=== PATIENT | male | born 1950 | race Caucasian/White ===

== ENCOUNTER → 2018-10-21 | Outpatient (CLI) | payer MEDICARE | LOC: COL.RAD 10:42 | DX: Z01.812 Encounter for preprocedural laboratory examination (principal); H91.93 Unspecified hearing loss, bilateral; J32.0 Chronic maxillary sinusitis; J32.2 Chronic ethmoidal sinusitis | CPT/HCPCS: Q9967 ==

== ENCOUNTER → 2020-12-10 | Outpatient (CLI) | payer MEDICARE | LOC: COL.RAD 09:48 | DX: G44.039 Episodic paroxysmal hemicrania, not intractable (principal) ==

== ENCOUNTER 2023-11-15 06:26 | Emergency (ER) | payer MEDICARE ==
[~2023-11-15] VITALS: Ht 175.3 cm; Wt 86.4 kg
[2023-11-15 06:27] VITALS: TEMP 97.8
[2023-11-15] MEDS ORDERED: Morphine 10 MG/ML VIAL IM ONE (07:00)
[2023-11-15] MEDS ORDERED: Lidocaine 4% Topical Patch TP ONE (08:00)
[2023-11-15 08:02] VITALS: BP 124/78; PULSE 64
== END 2023-11-15 08:02 | disposition home or self-care (01) ==
LOC: COL.ER 06:26
DX: R07.89 Other chest pain (principal); J90 Pleural effusion, not elsewhere classified; Z95.1 Presence of aortocoronary bypass graft
CPT/HCPCS: J2270

== ENCOUNTER 2023-11-23 10:11 | Inpatient (IN) | payer MEDICARE ==
[~2023-11-23] VITALS: Ht 175.3 cm; Wt 91.4 kg
[2023-11-23 11:18] LABS: HEMATOCRIT 46.7 % (42.0-52.0); HEMOGLOBIN 15.6 g/dl (13.5-18.0); MEAN CELL VOLUME 93 fl (80.0-100.0); MEAN CORPUSCULAR HEMOGLOBIN 31 pg (27-31); MEAN CORPUSCULAR HGB CONC 33 g/dl (33.0-37.0); MEAN PLATELET VOLUME 9.8 fl (7.4-10.4); PLATELET COUNT 253 K/mm3 (130-400); RED BLOOD COUNT 5.01 M/mm3 (4.20-5.60); REDCELL DISTRIBUTION WIDTH-CV 13.6 % (11.5-14.5)
[2023-11-23 11:44] LABS: ALANINE AMINOTRANSFERASE 69 U/L (0-55); ALBUMIN 2.4 g/dL (3.4-4.8); ALKALINE PHOSPHATASE 128 U/L (40-150); ANION GAP 12 mmol/L (7-16); AST,SGOT 34 U/L (5-34); BLOOD UREA NITROGEN 24 mg/dL (8-26); CALCIUM 9.2 mg/dL (8.4-10.2); CHLORIDE 101 mEq/L (98-107); CREATININE, serum 0.84 mg/dL (0.72-1.25); GLUCOSE 95 mg/dL (70-99); POTASSIUM 4.6 mEq/L (3.5-4.5); SODIUM 136 mEq/L (136-145); TOTAL PROTEIN 6.6 g/dl (6.2-8.1)
[2023-11-23] MEDS ORDERED: NS 1,000 ML IV ONE (11:45)
[2023-11-23 11:50] LABS: TROPONIN-I < 0.010 ng/mL (0.00-0.033)
[2023-11-23 12:09] LABS: LYMPHOCYTE 9 % (20.0-51.0); NEUTROPHILS 89 % (42.0-75.2); PLATELET ESTIMATE NORMAL (NORMAL)
[2023-11-23 12:10] LABS: BURR CELLS 1+
[2023-11-23] MEDS ORDERED: Doxycycline Monohydrate 100 MG CAP PO SCH (12:19)
[2023-11-23] MEDS ORDERED: BETAPACE AF80 MG/TA1 PO (12:43)
[2023-11-23] MEDS ORDERED: LIPITOR 40MG TA40 MG PO ×2 (12:44→12:45)
[2023-11-23] MEDS ORDERED: CARDURA4 MG PO (12:44)
[2023-11-23] MEDS ORDERED: ASPIRIN E.C. 8181 MG PO (12:47)
[2023-11-23] MEDS ORDERED: NYSTATIN100000 U/1 TOP (12:47)
[2023-11-23] MEDS ORDERED: HONEY BEARS MU1 EACH PO (12:50)
[2023-11-23] MEDS ORDERED: B-121000 MCG PO (12:51)
[2023-11-23] MEDS ORDERED: OMEGA-3 1000 MG1 CAP PO (12:52)
[2023-11-23] MEDS ORDERED: PROBIOTIC-PREB1 EACH PO (12:52)
[2023-11-23 13:49] VITALS: BP 154/85; PULSE 74; TEMP 97.4
[2023-11-23] MEDS ORDERED: *Potassium Replacement Protocol MC SCH (14:30)
--- NOTE | 2023-11-23 14:54 | NUR ---
Pt. to the floor from ER. Pt. is A&OX3, assessment complete. INT to lt. ac patent. Pt. denies pain at this time. Call light within reach.
[2023-11-23] MEDS ORDERED: Cefepime 1 G in Water For Injection,Sterile 10 ML IV SCH (15:00)
[2023-11-23 15:05] LABS: INR 1.4 (0.8-3.0); PROTHROMBIN TIME 15.1 SECONDS (9.7-12.8)
[2023-11-23] MEDS ORDERED: Nystatin 100,000 Units/GM Cream 15 GM TUBE TP PRN (17:00)
[2023-11-23] MEDS ORDERED: Atorvastatin 40 MG TAB PO PRN (17:00)
[2023-11-23 18:31] LABS: PLEURAL FLUID RBC 90000 /mm3 (0-0)
[2023-11-23 18:33] LABS: PLEURAL FLUID APPEARANCE TURBID; PLEURAL FLUID COLOR AMBER
[2023-11-23 19:24] VITALS: BP 149/82; PULSE 94; TEMP 98.3
[2023-11-23] MEDS ORDERED: traMADol 50 MG TAB PO PRN (20:00)
[2023-11-23] MEDS ORDERED: Atorvastatin 40 MG TAB PO SCH (21:00)
--- NOTE | 2023-11-23 21:10 | NUR ---
SHIFT ASSESSMENT COMPLETE. MED PASS COMPLETE. BANDAGE TO LT ANGELIA SITE CDI. LUNG SOUNDS DIMINISHED ALL QUADRANTS. PATIENT AXO X 4. C/O OF 6/10 PLEURAL PAIN. CALL PLACED TO HOSPITALIST TORB FOR TRAMADOL GIVEN AND ADMINISTERED.
[2023-11-23 23:03] VITALS: BP 115/64; PULSE 70; TEMP 98.6
[2023-11-24] VITALS (11 sets, daily range): BP systolic 134–153; BP diastolic 81–92; PULSE 69–83; TEMP 97.3–98.3
--- NOTE | 2023-11-24 05:12 | NUR ---
PATIENT 02 SAT 90% ON RA- 2L O2 NASAL CANULA APPLIED. PATIENT O2 SAT 95%.
[2023-11-24 06:19] LABS: BASO # 0.1 K/mm3 (0.0-0.2); BASO % 0.2 % (0.0-2.0); EOS % 0.1 % (0.0-4.0); GRAN % 86.3 % (42.2-75.2); HEMATOCRIT 47.8 % (42.0-52.0); HEMOGLOBIN 16.2 g/dl (13.5-18.0); LYMPH # 1.8 K/mm3 (1.2-3.4); LYMPH % 7.9 % (20.0-51.0); MEAN CELL VOLUME 91 fl (80.0-100.0); MEAN CORPUSCULAR HEMOGLOBIN 31 pg (27-31); MEAN CORPUSCULAR HGB CONC 34 g/dl (33.0-37.0); MEAN PLATELET VOLUME 9.8 fl (7.4-10.4); MONO # 1.1 K/mm3 (0.1-0.6); MONO % 4.6 % (1.7-9.3); PLATELET COUNT 259 K/mm3 (130-400); RED BLOOD COUNT 5.28 M/mm3 (4.20-5.60); REDCELL DISTRIBUTION WIDTH-CV 13.4 % (11.5-14.5)
[2023-11-24 06:33] LABS: ALBUMIN 2.4 g/dL (3.4-4.8); CALCIUM 9.7 mg/dL (8.4-10.2); CREATININE, serum 0.86 mg/dL (0.72-1.25); PHOSPHOROUS 3.4 mg/dL (2.3-4.7); POTASSIUM 4.4 mEq/L (3.5-4.5)
--- NOTE | 2023-11-24 06:53 | NUR ---
ATTEMPTED TO CALL HOSPITALIST FOR CRITICAL LAB VALUE-WBC 23.2. NO ANSWER. WILL PASS TO DAYSHIFT.
[2023-11-24] MEDS ORDERED: Iohexol 300 - 100 ML VIAL IV ONE (10:58)
[2023-11-24] MEDS ORDERED: NS 100 ML IV SCH (10:59)
--- NOTE | 2023-11-24 12:33 | NUR ---
Supervisor Braiding met with patient to discuss discharge planning. Patient lives alone in [place], [place] and sees Dr. Vaz for primary care. Patient gets his medications from [facility] and while he stated he can afford his medications, he is concerned about his hospital bill. SW consulted [employer] Counselor for assistance. Patient does not use any DME and is independent with [employer]. Patient stated this all started when he was helping his son, Armando move windows and he injured his ribs. Patient advised his son is a local contractor and he was helping him out. Patient has three sons: Armando (ph#[phone]), Casimiro, and Ruddy. Patient requested to fill out DPOA-HC and chose to designate his sons, Armando and Ruddy. KEESHA and KEESHA student, Bianca provided witness signature. KEESHA placed copy in chart then provided original and copies to patient. Discharge Plan: Home
[2023-11-24] MEDS ORDERED: VITAMIN D31000 IU PO (14:14)
[2023-11-24] MEDS ORDERED: Cholecalciferol (Vit D3) 1000 Units TAB PO SCH (14:30)
[2023-11-24] MEDS ORDERED: Multivitamin TAB PO SCH (14:30)
[2023-11-24] MEDS ORDERED: Cyanocobalamin (Vit B-12) 1,000 MCG TAB PO SCH (14:30)
--- NOTE | 2023-11-24 21:00 | NUR ---
SHIFT ASSESSMENT COMPLETE. PATIENT AXO X4 AND PLESANT. RT SIDED THORA SITE CDI WITH BANDAGE. LUNG SOUNDS DIMINISHED THROUGHOUT. PATIENT REMAINS ON 1L O2 NC. C/O OF 6/10 PLEURAL RT SIDED PAIN. PRN TRAMADOL GIVEN, MED PASS COMPLETE. VS ARE WNL AND TELE IS NS. PATIENT STATES NO OTHER NEEDS.
[2023-11-25] VITALS (10 sets, daily range): BP systolic 139–153; BP diastolic 74–86; PULSE 70–84; TEMP 97.4–98.5
--- NOTE | 2023-11-25 03:00 | NUR ---
ADMINISTERED IV ANTIBIOTICS, PATIENT WAS AWAKE UPON ENTERING ROOM. PATIENT C/O LOWER ABDOMINAL PAIN HE STATES IS D/T CONSTIPATION. BOWEL SOUNDS AUDIBLE IN ALL QUADRANTS. PATIENT STATED WOULD LIKE TO WAIT TO SEE HOW PROBI[employer] WILL WORK IN THE MORNING. VS ARE WNL-LUNG SOUNDS REMAIN DIMINSHED IN LOWER LOBES. STATES NO OTHER NEEDS AT THIS TIME
[2023-11-25 07:27] LABS: ALBUMIN 2.1 g/dL (3.4-4.8); CALCIUM 9.2 mg/dL (8.4-10.2); CREATININE, serum 0.81 mg/dL (0.72-1.25); PHOSPHOROUS 3.2 mg/dL (2.3-4.7); POTASSIUM 4.2 mEq/L (3.5-4.5)
[2023-11-25 07:34] LABS: HEMATOCRIT 43.7 % (42.0-52.0); HEMOGLOBIN 14.7 g/dl (13.5-18.0); MEAN CELL VOLUME 90 fl (80.0-100.0); MEAN CORPUSCULAR HEMOGLOBIN 30 pg (27-31); MEAN CORPUSCULAR HGB CONC 34 g/dl (33.0-37.0); MEAN PLATELET VOLUME 10.2 fl (7.4-10.4); PLATELET COUNT 260 K/mm3 (130-400); RED BLOOD COUNT 4.84 M/mm3 (4.20-5.60); REDCELL DISTRIBUTION WIDTH-CV 13.2 % (11.5-14.5)
[2023-11-25 08:42] LABS: BAND 9 % (0-10); LYMPHOCYTE 4 % (20.0-51.0); NEUTROPHILS 83 % (42.0-75.2); PLATELET ESTIMATE NORMAL (NORMAL)
--- NOTE | 2023-11-25 21:00 | NUR ---
UPON SHIFT ASSESSMENT, PATIENT WAS SITTING ON BEDSIDE AXO X4. YORK COULD BE NOTED WHILE TALKING. LUNG SOUNDS ARE DIMINSHED THROUGHOUT. PATIENT ON 1L NC O2. VS ARE CURRENTLY WNL. TELE IS NS. PATIENT C/O 11/07 RT SIDED PLEURAL PAIN PRN TRAMADOL ADMINISTERED. NO OTHER NEEDS STATED AT THIS TIME. CALL LIGHT WITHIN REACH.
[2023-11-26] VITALS (8 sets, daily range): BP systolic 139–164; BP diastolic 81–89; PULSE 66–75; TEMP 97.6–98.4
[2023-11-26 07:44] LABS: ALBUMIN 2.2 g/dL (3.4-4.8); CALCIUM 9.2 mg/dL (8.4-10.2); CREATININE, serum 0.84 mg/dL (0.72-1.25); POTASSIUM 3.9 mEq/L (3.5-4.5)
[2023-11-26 08:22] LABS: BASO % 0.2 % (0.0-2.0); EOS % 0.1 % (0.0-4.0); GRAN # 17.5 K/mm3 (1.4-6.5); GRAN % 86.2 % (42.2-75.2); HEMOGLOBIN 14.6 g/dl (13.5-18.0); LYMPH # 1.4 K/mm3 (1.2-3.4); MEAN CELL VOLUME 92 fl (80.0-100.0); MEAN CORPUSCULAR HEMOGLOBIN 31 pg (27-31); MEAN CORPUSCULAR HGB CONC 34 g/dl (33.0-37.0); MEAN PLATELET VOLUME 10.3 fl (7.4-10.4); MONO # 1.2 K/mm3 (0.1-0.6); PLATELET COUNT 266 K/mm3 (130-400); RED BLOOD COUNT 4.69 M/mm3 (4.20-5.60); REDCELL DISTRIBUTION WIDTH-CV 13.5 % (11.5-14.5)
--- NOTE | 2023-11-26 08:30 | NUR ---
PT AMBULATING IN ROOM INDEPENDENTLY, GAIT STEADY. ASSESSMENT DONE, MEDS GIVEN PER ORDER. PT REPORTS 4/10 RIGHT FLANK PAIN AND STATES THAT ITS TOLERABLE AND DENYING PRN AT THIS TIME, TRAMADOL RETURNED TO PYXIS. INT TO LEFT WRIST PATENT. RIGHT UPPER BACK THORA SITE CDI WITH BANDAID. RIGHT PINKY AND RIGHT FINGER AMPUTATION NOTED. PT DENIES NEEDS. BED IN LOWEST POSITION, CALL LIGHT IN REACH.
[2023-11-26] MEDS ORDERED: Doxycycline Monohydrate 100 MG CAP PO SCH (09:00)
[2023-11-26] MEDS ORDERED: Potassium Bicarbonate/Citrate 20 MEQ Effervescent TAB PO ONE (09:30)
[2023-11-26] MEDS ORDERED: Sennosides/Docusate 8.6-50 MG TAB PO SCH (09:45)
--- NOTE | 2023-11-26 09:55 | NUR ---
Initial visit; Patient welcomed Bin Worker although he has just spoken with his Claim Approver and said prayers. Bin Worker said he is probably well taken care of and wished him God's blessings.
--- NOTE | 2023-11-26 14:00 | NUR ---
PTS BELONGINGS IN BACKPACK AT BEDSIDE. NS RUNNING AT 50 MLS/HR IN LEFT FOREARM AND ZOSYN PIGGYBACK RUNNING AT 25 MLS/HR. EMS AT BEDSIDE AND ALL QUESTIONS ANSWERED, TRANSFER PACKET GIVEN TO THEM. TELE REMOVED. PT DENIES NEEDS AND ESCORTED TO TRANSPORT VEHICLE VIA EMS.
--- NOTE | 2023-11-26 16:09 | NUR ---
Patient transferred to another acute hospital.
== END 2023-11-26 14:00 | disposition short-term general hospital (02) | DRG 871 ==
LOC: COL.ER 10:11 → MEDICAL 12:16
PROVIDERS: Physician Assistant; ADMIT Internal Medicine
PROC: 0W993ZX Drainage of Right Pleural Cavity, Percutaneous Approach, Diagnostic (ICD-10-PCS; principal; 2023-11-23)
DX: A41.9 Sepsis, unspecified organism (principal); J18.9 Pneumonia, unspecified organism; J96.01 Acute respiratory failure with hypoxia; J86.9 Pyothorax without fistula; J90 Pleural effusion, not elsewhere classified; I10 Essential (primary) hypertension; I25.10 Atherosclerotic heart disease of native coronary artery without angina pectoris; I44.0 Atrioventricular block, first degree; I27.20 Pulmonary hypertension, unspecified; I48.91 Unspecified atrial fibrillation; Z88.5 Allergy status to narcotic agent; Z79.82 Long term (current) use of aspirin; Z79.899 Other long term (current) drug therapy; Z23 Encounter for immunization
CPT/HCPCS: J0692; J2543; J7030; Q3014; Q9967

== ENCOUNTER → 2024-01-21 | Outpatient (CLI) | payer MEDICARE ==
[~2024-01-21] MED LIST: ASPIRIN E.C. 8181 MG PO; B-121000 MCG PO; BETAPACE AF80 MG/TA1 PO; CARDURA4 MG PO; Gadoterate 20 ML VIAL IV ONE; HONEY BEARS MU1 EACH PO; LIPITOR 40MG TA40 MG PO; NYSTATIN100000 U/1 TOP; OMEGA-3 1000 MG1 CAP PO; PROBIOTIC-PREB1 EACH PO; VITAMIN D31000 IU PO
== END ==
LOC: COL.RAD 06:52
DX: H53.2 Diplopia (principal)
CPT/HCPCS: A9575